=== PATIENT | female | born 1985 | race Caucasian/White ===

== ENCOUNTER 2019-04-04 04:53 | Emergency (ER) | payer OTHER, SELFPAY ==
--- NOTE | 2019-04-04 04:55 | ED_ITS ---
Entered by Miriam Sanchez, acting as scribe for Abby Bryant Documented by User: Abby Bryant 04/04/19 05:54 HPI - Female Genitourinary General: Chief complaint: Vaginal Bleeding Stated complaint: heavy vaginal bleeding Time Seen by Provider: 04/04/19 04:57 Source: patient and family Mode of arrival: ambulatory History of Present Illness: HPI Narrative: 33 y/of female presents to the ED with complaint of heavy vaginal bleeding. Pt states she has had bright red blood since yesterday evening. Around 0300 she had increased bleeding/passing clots. Pt states she recently had a miscarriage so she is not sure if it is time for her next period. She was advised by Dr. Huitron to come into the ER if her bleeding worsened. MD elicited complaint: vaginal bleeding Pertinent past history: prior miscarriages Onset (ago): hour(s) Location of symptoms: vaginal Severity: moderate Consistency: progressively worsening Vaginal bleeding: bright red and clots Associated symptoms: Reports vaginal bleeding; Deny headache(s), nausea or syncope Patient : No Possible : other (recent miscarriage) Review of Systems General: Reports: other (negative unless marked) Const: Denies: fever, chills, body aches, fatigue, malaise or diaphoresis Eyes: Denies: change in vision or blurry vision ENMT: Denies: throat pain, painful swallowing, hoarseness, ear pain, ear discharge, Change in hearing or nasal discharge Card: Denies: chest pain, palpitations, irregular heart rhythm, syncope, pre- syncope, shortness of breath on exertion or shortness of breath when lying down Resp: Denies: shortness of breath, productive cough, non-productive cough, wheezing, coughing up blood or chest congestion GI: Denies: nausea, vomiting, vomiting blood, coffee grounds in vomit, diarrhea, constipation, cramping, blood in stool or black tarry stool : Denies: flank pain, painful urination, urinary frequency, urinary urgency, decreased urine ouput, urinary incontinence or blood in urine Musc: Denies: neck pain, back pain, extremity pain, extremity swelling, joint pain, joint swelling, joint warmth or joint stiffness Skin/Breast: Denies: rash, skin tenderness or yellow skin Neuro: Denies: headache, numbness in extremities, weakness in extremities, changes in sensation, lack of coordination, difficulty walking, dizziness, vertigo or confusion Endo: Denies: excessive thirst, tired all the time, cold intolerance, excessive sweating, flushing or hot flashes Tito/Lymph: Denies: easy bruising, easy bleeding, petechiae or enlarged lymph nodes All/Imm: Denies: hives, throat swelling, tongue swelling, facial swelling or acute wheezing PFSH ED PFSH: Social History Smoking and tobacco status: never smoked Physical Exam Const: COMMON NORMALS: no apparent distress, oriented x3, no limitations, healthy appearing and well nourished EXAM LIMITATIONS: no altered mental status GENERAL APPEARANCE: cooperative, well kempt and well developed ORIENTATION/CONSCIOUSNESS: Yes awake HENMT: COMMON NORMALS: normocephalic, head/scalp atraumatic, hearing grossly normal bilaterally, external ears normal, EAC's normal, external nose normal and moist oral mucous membranes HEAD & SCALP: normal to inspection, normocephalic and atraumatic FACE & SINUS: normal facial exam and face symmetric NOSE: external nose normal and nares normal EXTERNAL EAR: Yes external ears normal EXTERNAL AUDITORY CANAL: EAC's normal MOUTH: oral and palatal mucosa normal and tongue normal Eye: COMMON NORMALS: PERRL, EOMs intact bilaterally, conjunctivae normal and no scleral icterus GENERAL EYE: normal appearance of both eyes and normal light reflex CONJUNCTIVA: Yes conjunctivae normal SCLERA: sclerae normal CORNEA: Yes corneas normal PUPIL: Yes PERRL DIRECT OPHTHALMOSCOPY: Yes normal light reflex Neck/C-Spine: COMMON NORMALS: full ROM, no lymphadenopathy, supple, no meningeal signs and no JVD GENERAL: Yes normal visual inspection and Yes trachea midline CERVICAL SPINE: Yes cervical ROM normal Chest: COMMONS NORMALS: inspection of chest normal and palpation of chest normal Resp: COMMON NORMALS: normal respiratory effort, no retractions, no use of accessory muscles and clear to auscultation bilaterally EFFORT & INSPECTION: Yes able to speak in complete sentences AUSCULTATION: clear to auscultation bilaterally Cardio: COMMON NORMALS: no JVD, regular rate, regular rhythm, S1 normal heart sound, S2 normal heart sound, no gallops, no clicks, no murmurs and no rub JUGULAR VENOUS DISTENTION: no JVD RATE: regular rate RHYTHM: regular rhythm HEART SOUNDS: S1 normal and S2 normal GI: COMMON NORMALS: soft to palpation, non-tender, no hepatosplenomegaly and no masses INSPECTION: Yes normal to inspection PALPATION: Yes soft and Yes no hepatosplenomegaly : COMMON NORMALS: Yes bimanual exam normal EXTERNAL FEMALE EXAM: Yes normal appearance of the urethra SPECULUM EXAM - VAGINA: Yes vaginal bleeding and Yes tissue present in vagina SPECULUM EXAM - CERVIX: Yes cervical os benjamin sed, Yes tissue present in the cervical os and Yes cervical bleeding BIMANUAL EXAM - VAGINA & UTERUS: Yes normal bimanual exam OB/EXTERNAL & SPECULUM: tissue present in vagina and vaginal bleeding Extremity: COMMON NORMALS: normal to inspection, full ROM, normal capillary refill, no joint enlargement, no clubbing, cyanosis or edema and no calf tenderness Neuro: COMMON NORMALS: oriented x3, CN's II-XII intact bilaterally, moves all extremities, no focal motor deficits and no sensory deficits noted MENINGEAL SIGNS: Yes no meningeal signs Psych: COMMON NORMALS: mental status grossly normal, thought process normal, cooperative, affect normal, speech normal and activity/motor behavior normal APPEARANCE: Yes well kempt SPEECH: Yes normal speech THOUGHT PROCESS: normal thought process Skin: COMMON NORMALS: no rashes or lesions noted, skin turgor normal, no jaundice, no petechiae and no mottling GENERAL SKIN EXAM: no rashes or lesions noted and turgor normal Course Vital Signs: Vital signs: Vital Signs Temperature 97.7 F 04/04/19 04:57 Pulse Rate 97 04/04/19 06:22 Respiratory Rate 18 04/04/19 06:22 Blood Pressure 125/78 04/04/19 06:22 Pulse Oximetry 98 04/04/19 06:22 [facility] - Female Lab Data: Labs: Lab Results 04/04/19 04/04/19 04/04/19 Range/Units 05:35 05:46 05:46 WBC 7.1 (4.0-10.0) 10^3/ uL RBC 4.21 (4.1-5.3) 10^6/u L Hgb 11.6 (11.5-15.3) g/dL Hct 36.2 L (37.0-47.0) % MCV 86.0 (81-99) fL MCH 27.6 L (28.0-34.0) pg MCHC 32.0 (30.0-36.0) g/dL RDW 13.2 (12.1-15.1) % Plt Count 260 (130-400) 10^3/c mm MPV 9.6 (7.4-10.4) fL Neut % (Auto) 68.7 % Lymph % (Auto) 22.1 % [place] % (Auto) 6.1 % Eos % (Auto) 2.4 % Baso % (Auto) 0.4 % Neut # (Auto) 4.9 (1.8-7.7) 10^3/u L Lymph # (Auto) 1.6 (0.8-4.8) 10^3/u L [place] # (Auto) 0.4 (0.2-0.9) 10^3/u L Eos # (Auto) 0.2 (0.0-0.8) 10^3/u L Baso # (Auto) 0.0 (0.0-0.1) 10^3/u L Nucleated RBC % (a uto) 0 % Nucleated RBCs # 0.0 /100WBC Sodium 138 (136-145) mmol/L Potassium 3.9 (3.5-5.1) mmol/L Chloride 105 (98-107) mmol/L Carbon Dioxide 22 (22-29) mmol/L Anion Gap 14.9 (5-19) BUN 7 (6-20) mg/dL Creatinine 0.7 (0.5-0.9) mg/dL GFR Calculation 97.6 (90-130) mL/min Glucose 97 (65-115) mg/dL Calcium 9.9 (8.5-10.5) mg/dL Magnesium 2.2 (1.7-2.3) mg/dL Total Bilirubin 0.3 (0.15-1.2) mg/dL AST 14 (0-32) U/L ALT 13 (0-33) U/L Alkaline Phosphata se 62 (35-105) IU/L Total Protein 7.5 (6.6-8.7) g/dL Albumin 4.3 (3.5-5.2) g/dL Globulin 3.2 (1.3-4.6) g/dL Ser , [place] i-Qnt 4266.00 mIU/mL Urine Color Yellow (Yellow) Urine Appearance Clear (CLEAR) Urine pH 6.5 (5-7) Ur Specific Gravit y 1.010 (1.005-1.030) Urine Protein Neg (Negative) Urine Glucose (UA) Norm (Normal) Urine Ketones Negative (Negative) Urine Occult Blood 2+ H (Negative) Urine Nitrate Negative (Negative) Urine Bilirubin Neg (NEGATIVE) Urine Urobilinogen Norm (Negative) mg/dL Ur Leukocyte Debbie ase Negative (Negative) Urine RBC 0-4 H (0-2) /hpf Urine WBC None (0-5) /hpf Ur Squamous Epith Cells 0-4 H (0-5) Urine Bacteria None (NONE) Blood Type 04/04/19 Range/Units 05:46 WBC (4.0-10.0) 10^3/ uL RBC (4.1-5.3) 10^6/u L Hgb (11.5-15.3) g/dL Hct (37.0-47.0) % MCV (81-99) fL MCH (28.0-34.0) pg MCHC (30.0-36.0) g/dL RDW (12.1-15.1) % Plt Count (130-400) 10^3/c mm MPV (7.4-10.4) fL Neut % (Auto) % Lymph % (Auto) % [place] % (Auto) % Eos % (Auto) % Baso % (Auto) % Neut # (Auto) (1.8-7.7) 10^3/u L Lymph # (Auto) (0.8-4.8) 10^3/u L [place] # (Auto) (0.2-0.9) 10^3/u L Eos # (Auto) (0.0-0.8) 10^3/u L Baso # (Auto) (0.0-0.1) 10^3/u L Nucleated RBC % (a uto) % Nucleated RBCs # /100WBC Sodium (136-145) mmol/L Potassium (3.5-5.1) mmol/L Chloride (98-107) mmol/L Carbon Dioxide (22-29) mmol/L Anion Gap (5-19) BUN (6-20) mg/dL Creatinine (0.5-0.9) mg/dL GFR Calculation (90-130) mL/min Glucose (65-115) mg/dL Calcium (8.5-10.5) mg/dL Magnesium (1.7-2.3) mg/dL Total Bilirubin (0.15-1.2) mg/dL AST (0-32) U/L ALT (0-33) U/L Alkaline Phosphata se (35-105) IU/L Total Protein (6.6-8.7) g/dL Albumin (3.5-5.2) g/dL Globulin (1.3-4.6) g/dL Ser , [place] i-Qnt mIU/mL Urine Color (Yellow) Urine Appearance (CLEAR) Urine pH (5-7) Ur Specific Gravit y (1.005-1.030) Urine Protein (Negative) Urine Glucose (UA) (Normal) Urine Ketones (Negative) Urine Occult Blood (Negative) Urine Nitrate (Negative) Urine Bilirubin (NEGATIVE) Urine Urobilinogen (Negative) mg/dL Ur Leukocyte Debbie ase (Negative) Urine RBC (0-2) /hpf Urine WBC (0-5) /hpf Ur Squamous Epith Cells (0-5) Urine Bacteria (NONE) Blood Type O Positive Discharge Plan Discharge Patient Disposition: Home, Self-Care Clinical Impression: Spontaneous miscarriage Condition: Stable Discharge Orders: Discharge Order (Routine); Ordered 04/04/19 Ordered By: Mauro Amaro Referrals: Henrique Huitron MD [Physician] - Discharge Diet: Usual diet Discharge Activity: Resume usual activity Activity Restrictions/Additional Instructions: Follow-up with Dr. Huitron within the next 3 to 5 days for repeat beta-hCG. R eturn if you have increased vaginal bleeding Sign Out Sign Out Data: Patient Sign Out occurred on 04/04/19 at 06:48. Patient's care was discussed, and care was transferred from to Mauro Amaro DO. Coding Level of Care Code ED Back Tender Insulation Board for Chg Fwd Exam Comprehensive Documented by User: Mauro Amaro DO 04/04/19 07:21 HPI - Female Genitourinary General: Chief complaint: Vaginal Bleeding Stated complaint: heavy vaginal bleeding Time Seen by Provider: 04/04/19 04:57 PFSH ED PFSH: Social History Smoking and tobacco status: never smoked Course ED course: 33-year-old female was spontaneous AB picked up at change of shift. Beta-hCG approximately 4600. Patient is Rh+. Ultrasound shows indistinct material in the uterine vault. From what Dr. Smalls and described she probably removed products of conception from cervical loss of bleeding is slowed significantly since then. Discussed with the findings with the patient. Recommend that she follow-up with Dr. Huitron in the next 3 to 5 days she is to return if she begins bleeding more than a pad an hour. Discussed that if she is not does not need RhoGam I would anticipate she will continue to have some level of bleeding although it should begin tapering off. Also informed her she will need a follow-up beta-hCG through Dr. Huitron's office and to contact his office within the next day or 2 to schedule that. Vital Signs: Vital signs: Vital Signs Temperature 97.7 F 04/04/19 04:57 Pulse Rate 97 04/04/19 06:22 Respiratory Rate 18 04/04/19 06:22 Blood Pressure 125/78 04/04/19 06:22 Pulse Oximetry 98 04/04/19 06:22 MDM - Female Lab Data: Labs: Lab Results 04/04/19 04/04/19 04/04/19 Range/Units 05:35 05:46 05:46 WBC 7.1 (4.0-10.0) 10^3/ uL RBC 4.21 (4.1-5.3) 10^6/u L Hgb 11.6 (11.5-15.3) g/dL Hct 36.2 L (37.0-47.0) % MCV 86.0 (81-99) fL MCH 27.6 L (28.0-34.0) pg MCHC 32.0 (30.0-36.0) g/dL RDW 13.2 (12.1-15.1) % Plt Count 260 (130-400) 10^3/c mm MPV 9.6 (7.4-10.4) fL Neut % (Auto) 68.7 % Lymph % (Auto) 22.1 % [place] % (Auto) 6.1 % Eos % (Auto) 2.4 % Baso % (Auto) 0.4 % Neut # (Auto) 4.9 (1.8-7.7) 10^3/u L Lymph # (Auto) 1.6 (0.8-4.8) 10^3/u L [place] # (Auto) 0.4 (0.2-0.9) 10^3/u L Eos # (Auto) 0.2 (0.0-0.8) 10^3/u L Baso # (Auto) 0.0 (0.0-0.1) 10^3/u L Nucleated RBC % (a uto) 0 % Nucleated RBCs # 0.0 /100WBC Sodium 138 (136-145) mmol/L Potassium 3.9 (3.5-5.1) mmol/L Chloride 105 (98-107) mmol/L Carbon Dioxide 22 (22-29) mmol/L Anion Gap 14.9 (5-19) BUN 7 (6-20) mg/dL Creatinine 0.7 (0.5-0.9) mg/dL GFR Calculation 97.6 (90-130) mL/min Glucose 97 (65-115) mg/dL Calcium 9.9 (8.5-10.5) mg/dL Magnesium 2.2 (1.7-2.3) mg/dL Total Bilirubin 0.3 (0.15-1.2) mg/dL AST 14 (0-32) U/L ALT 13 (0-33) U/L Alkaline Phosphata se 62 (35-105) IU/L Total Protein 7.5 (6.6-8.7) g/dL Albumin 4.3 (3.5-5.2) g/dL Globulin 3.2 (1.3-4.6) g/dL Ser , [place] i-Qnt 4266.00 mIU/mL Urine Color Yellow (Yellow) Urine Appearance Clear (CLEAR) Urine pH 6.5 (5-7) Ur Specific Gravit y 1.010 (1.005-1.030) Urine Protein Neg (Negative) Urine Glucose (UA) Norm (Normal) Urine Ketones Negative (Negative) Urine Occult Blood 2+ H (Negative) Urine Nitrate Negative (Negative) Urine Bilirubin Neg (NEGATIVE) Urine Urobilinogen Norm (Negative) mg/dL Ur Leukocyte Debbie ase Negative (Negative) Urine RBC 0-4 H (0-2) /hpf Urine WBC None (0-5) /hpf Ur Squamous Epith Cells 0-4 H (0-5) Urine Bacteria None (NONE) Blood Type 04/04/19 Range/Units 05:46 WBC (4.0-10.0) 10^3/ uL RBC (4.1-5.3) 10^6/u L Hgb (11.5-15.3) g/dL Hct (37.0-47.0) % MCV (81-99) fL MCH (28.0-34.0) pg MCHC (30.0-36.0) g/dL RDW (12.1-15.1) % Plt Count (130-400) 10^3/c mm MPV (7.4-10.4) fL Neut % (Auto) % Lymph % (Auto) % [place] % (Auto) % Eos % (Auto) % Baso % (Auto) % Neut # (Auto) (1.8-7.7) 10^3/u L Lymph # (Auto) (0.8-4.8) 10^3/u L [place] # (Auto) (0.2-0.9) 10^3/u L Eos # (Auto) (0.0-0.8) 10^3/u L Baso # (Auto) (0.0-0.1) 10^3/u L Nucleated RBC % (a uto) % Nucleated RBCs # /100WBC Sodium (136-145) mmol/L Potassium (3.5-5.1) mmol/L Chloride (98-107) mmol/L Carbon Dioxide (22-29) mmol/L Anion Gap (5-19) BUN (6-20) mg/dL Creatinine (0.5-0.9) mg/dL GFR Calculation (90-130) mL/min Glucose (65-115) mg/dL Calcium (8.5-10.5) mg/dL Magnesium (1.7-2.3) mg/dL Total Bilirubin (0.15-1.2) mg/dL AST (0-32) U/L ALT (0-33) U/L Alkaline Phosphata se (35-105) IU/L Total Protein (6.6-8.7) g/dL Albumin (3.5-5.2) g/dL Globulin (1.3-4.6) g/dL Ser , [place] i-Qnt mIU/mL Urine Color (Yellow) Urine Appearance (CLEAR) Urine pH (5-7) Ur Specific Gravit y (1.005-1.030) Urine Protein (Negative) Urine Glucose (UA) (Normal) Urine Ketones (Negative) Urine Occult Blood (Negative) Urine Nitrate (Negative) Urine Bilirubin (NEGATIVE) Urine Urobilinogen (Negative) mg/dL Ur Leukocyte Debbie ase (Negative) Urine RBC (0-2) /hpf Urine WBC (0-5) /hpf Ur Squamous Epith Cells (0-5) Urine Bacteria (NONE) Blood Type O Positive Discharge Plan Discharge Patient Disposition: Home, Self-Care Clinical Impression: Spontaneous miscarriage Condition: Stable Discharge Orders: Discharge Order (Routine); Ordered 04/04/19 Ordered By: Mauro Amaro Referrals: Henrique Huitron MD [Physician] - Discharge Diet: Usual diet Discharge Activity: Resume usual activity Activity Restrictions/Additional Instructions: Follow-up with Dr. Huitron within the next 3 to 5 days for repeat beta-hCG. Return if you have increased vaginal bleeding Sign Out Sign Out Data: Patient Sign Out occurred on 04/04/19 at 06:48. Patient's care was discussed, and care was transferred from to Mauro Amaro DO. Coding Level of Care Code ED Back Tender Insulation Board for Chg Fwd Exam Comprehensive The documentation recorded by the Daniel finn Ashley, accurately reflects the service I personally performed and the decisions made by Manny edwards Eli N Apr 04, 2019 04:53
[2019-04-04 04:57] VITALS: BP 133/106; PULSE 94; RESP 18; TEMP 36.5; O2SAT 100; BMI 31.8
--- NOTE | 2019-04-04 05:10 | PC.NURSE ---
patient states that she has recently seen her OBGYN for a possible miscarriage. patient states that she was told she was having a miscarriage on the 2nd of this month. patient states that she started having bleeding today with clots
--- NOTE | 2019-04-04 05:14 | US_ITS ---
WS: [id number] PELVIC ULTRASOUND REASON FOR VISIT: Pain TECHNIQUE: Grayscale and Doppler transabdominal and transvaginal pelvic ultrasound. FINDINGS: The endometrium appears to be markedly thickened suggesting either retained products of conception ar e blood clots. Uterus measures 9.83 cm x 6.8 cm x 5.8 cm, right ovary measures 3.2 cm x 1.6 cm x 2.1 cm, and left ov sofia measures 3.8 cm x 1.5 cm x 1.7 cm. Considerable fluid in the cul-de-sac areas noted. US/US pelvic with transvaginal IMPRESSION: Suspect products of conception retention. Fluid in the cul-de-sac. The uterus is mildly enlarged.
[2019-04-04] MEDS: sodium chloride 0.9% 1,000 ML 100 ML IV (05:43)
[2019-04-04 05:55] LABS: Basophils % 0.4 %; Eosinophils # 0.2 10^3/uL (0.0-0.8); Eosinophils % 2.4 %; Hematocrit 36.2 % (37.0-47.0); Hemoglobin 11.6 g/dL (11.5-15.3); Lymphocytes # 1.6 10^3/uL (0.8-4.8); Lymphocytes % 22.1 %; Mean Corpuscular Hemoglobin 27.6 pg (28.0-34.0); Mean Platelet Volume 9.6 fL (7.4-10.4); Monocytes # 0.4 10^3/uL (0.2-0.9); Monocytes % 6.1 %; Neutrophils # 4.9 10^3/uL (1.8-7.7); Neutrophils % 68.7 %; Nucleated Red Blood Cells % 0 %; Platelet Count 260 10^3/cmm (130-400); Red Blood Count 4.21 10^6/uL (4.1-5.3); Red Cell Distribution Width 13.2 % (12.1-15.1); White Blood Count 7.1 10^3/uL (4.0-10.0)
[2019-04-04 05:59] LABS: Urine Appearance Clear (CLEAR); Urine Color Yellow (Yellow)
[2019-04-04 06:00] LABS: Bilirubin Urine Neg (NEGATIVE); Blood Urine 2+ (Negative); Glucose Urine UA Norm (Normal); Ketones Urine Negative (Negative); Leukocyte Esterase Urine Negative (Negative); Nitrate Urine Negative (Negative); Protein Urine Neg (Negative); Urobilinogen Urine Norm (Negative); pH Urine 6.5 (5-7)
[2019-04-04 06:12] LABS: Add Urine Culture? No; RBC Urine 0-4 /hpf (0-2); Squamous Epithelial Cell Urine 0-4 (0-5)
[2019-04-04 06:22] VITALS: BP 125/78; PULSE 97; RESP 18; O2SAT 98
[2019-04-04 06:23] LABS: Alanine Aminotransferase 13 U/L (0-33); Albumin Level 4.3 g/dL (3.5-5.2); Alkaline Phosphatase 62 IU/L (35-105); Anion Gap 14.9 (5-19); Aspartate Amino Transferase 14 U/L (0-32); Blood Urea Nitrogen 7 mg/dL (6-20); Calcium 9.9 mg/dL (8.5-10.5); Carbon Dioxide 22 mmol/L (22-29); Chloride 105 mmol/L (98-107); Globulin 3.2 g/dL (1.3-4.6); Glomerular Filtration Rate 97.6 mL/min (90-130); Glucose 97 mg/dL (65-115); Magnesium 2.2 mg/dL (1.7-2.3); Potassium 3.9 mmol/L (3.5-5.1); Sodium 138 mmol/L (136-145); Total Bilirubin 0.3 mg/dL (0.15-1.2); Total Protein 7.5 g/dL (6.6-8.7)
[2019-04-04 07:17] VITALS: BP 114/71; PULSE 86; O2SAT 98
--- NOTE | 2019-04-04 07:40 | PC.NURSE ---
Previous nurse did not complete assessment. This nurse saw this incomplete task after pt was discharged. Pt not assessed by fiction writer.
== END 2019-04-04 07:17 | disposition home or self-care (01) ==
PROVIDERS: Emergency Medicine; Emergency Provider Family Medicine; Family Provider Nurse Practitioner Family; PCP Nurse Practitioner Family
DX: O03.9 Complete or unspecified spontaneous abortion without complication (principal)
CPT/HCPCS: 76830; 76856; 80053; 81001; 83735; 84702; 85025; 86900; 87210; 87491; 87591; 96360; 96361; 99283; A9270; E0352; J7030

== ENCOUNTER 2019-08-29 14:34 | Outpatient (CLI) | payer OTHER, BC, SELFPAY ==
--- NOTE | 2019-08-29 14:30 | XR_ITS ---
WS: [id number] KUB, 08/29/2019 Clinical Data: Stones Comparison: KUB, 08/07/2018. Findings: No abnormal intraabdominal masses or calcifications are seen. There is no dilatated small bowel or ev idence of obstruction. There is a moderate amount of fecal material in the ascending and descending colon. XR/XR KUB [id number] Impression: Negative KUB.
== END 2019-08-29 14:35 | disposition home or self-care (01) ==
LOC: RAD 14:40
PROVIDERS: Family Provider Nurse Practitioner Family; PCP Nurse Practitioner Family; Visit Provider Urology
DX: N20.0 Calculus of kidney (principal)
CPT/HCPCS: 74018; 81001

== ENCOUNTER → 2019-12-31 14:14 | Outpatient (BNVA) | payer BC, SELFPAY | PROVIDERS: Family Provider Nurse Practitioner Family; PCP Nurse Practitioner Family; Visit Provider Nurse Practitioner Family | DX: Z79.899 Other long term (current) drug therapy (principal) | CPT/HCPCS: 80053 ==

== ENCOUNTER 2020-05-17 17:34 | Emergency (ER) | payer BC, SELFPAY ==
[2020-05-17 17:35] VITALS: BP 130/89; PULSE 89; RESP 18; TEMP 36.4; O2SAT 100; BMI 31.8
--- NOTE | 2020-05-17 17:49 | XRR_ITS ---
PROCEDURE INFORMATION: Exam: XR Right Ankle Exam date and time: 05/17/2020 5:51 PM Age: 35 years old Clinical indication: Injury or trauma; Fall; Swelling (edema); Ankle; Right; Patient HX: Twisting injury with swelling. C/O pain. ; Additional info: Injury with ankle pain TECHNIQUE: Imaging protocol: XR Right ankle. Views: 3 or more views. COMPARISON: No relevant prior studies available. FINDINGS: Bones/joints: Normal. Soft tissues: Normal. XR/XR ankle RT min 3V* [id number] IMPRESSION: Negative for fracture or dislocation.
--- NOTE | 2020-05-17 18:02 | ED_ITS ---
HPI - Extremity Problem General: Chief complaint: Extremity Injury, Lower Stated complaint: R LLE INJURY Time Seen by Provider: 05/17/20 17:49 History of Present Illness: HPI Narrative: Patient is a 35-year-old female comes to the ED with right ankle injury. Patient says she was walking in her yard a couple hours before arriving here in the ED and she stepped in a hole with her right leg. She describes her right ankle twisted and she felt a pop. She is now having pain in her right ankle when ambulating. She rates her pain currently a 6 out of 10. She says she has not taken any bvtc-plr-lwjcige pain meds before coming to the ED. Denies any head trauma or loss of consciousness. Associated symptoms: Deny chest pain, fever(s) or rash Review of Systems Const: Denies: fever(s), chills or fatigue Eyes: Denies: change in vision or eye discomfort ENMT: Denies: throat pain, odynophagia, nasal discharge or nasal congestion Card: Denies: chest pain, palpitations, edema, swelling of feet/ankles, dyspnea on exertion or orthopnea Resp: Denies: dyspnea, productive cough or non-productive cough GI: Denies: abdominal pain, nausea, vomiting, diarrhea, constipation or hematochezia : Denies: flank pain, dysuria or hematuria Musc: Reports: extremity pain (right ankle); Denies: neck pain, back pain or extremity swelling Skin/Breast: Denies: rash or new lesions Neuro: Denies: headache(s), numbness in extremities or weakness in extremities [facility] ED PFSH: Medical History S/P extracorporeal shock wave therapy Urolithiasis Surgical History H/O oral surgery wisdom teeth extraction Social History Smoking and tobacco status: never smoked Alcohol intake: never Marital status: Single Current occupational status: employed History of recent travel: No Physical Exam Const: COMMON NORMALS: no acute distress, patient oriented x3 and alert GENERAL APPEARANCE: cooperative and comfortable HENMT: COMMON NORMALS: normocephalic HEAD & SCALP: normocephalic MOUTH: Normal oral and palatal mucosa present THROAT: posterior oropharynx normal and uvula midline Neck/C-Spine: COMMON NORMALS: supple GENERAL: Yes normal visual inspection Resp: COMMON NORMALS: normal respiratory effort, No retractions, No use of accessory muscles and clear to auscultation bilaterally AUSCULTATION: clear to auscultation bilaterally Cardio: COMMON NORMALS: regular rate, regular rhythm, S1 normal heart sound present, S2 normal heart sound present, No gallops present (Cardio), No clicks present (Cardio), No murmurs present (Cardio) and Peripheral pulses 2+ throughout RATE: regular rate RHYTHM: regular rhythm HEART SOUNDS: S1 normal heart sound present and S2 normal heart sound present PERIPHERAL PULSES: Peripheral pulses 2+ throughout GI: COMMON NORMALS: Normal to inspection, nondistended, normoactive bowel sounds present, Soft to palpation, non-tender and no masses PALPATION: Yes Soft to palpation : COMMON NORMALS: Yes no CVA tenderness BLADDER/KIDNEY EXAM: Yes no CVA tenderness Back/Pelvis: COMMON NORMALS: no CVA tenderness Extremity: GENERAL: Yes normal exam except as noted RIGHT LOWER EXTREMITY: Yes foot & digits Right ankle: Yes inspection (No ecchymosis, deformity or edema seen.), Yes palpation (Tenderness to palpation over the anterior aspect of ankle.), Yes ROM (Limited due to pain.) and Yes neurovascular exam (Intact, pedal pulse 2+.) Neuro: COMMON NORMALS: patient oriented x3 and moves all extremities SENSORIUM/ORIENTATION: Yes alert Skin: GENERAL SKIN EXAM: dry skin Course Vital Signs: Vital signs: Vital Signs Temperature 97.5 F L 05/17/20 17:35 Pulse Rate 89 05/17/20 17:35 Respiratory Rate 18 05/17/20 17:35 Blood Pressure 130/89 05/17/20 17:35 Pulse Oximetry 100 05/17/20 17:35 MDM - Extremity (Nontraumatic) MDM Narrative: Medical decision making narrative: Patient is a 35-year-old female comes to the ED with right ankle injury. Injury occurred just prior to arrival and patient says she stepped in a hole and rolled ankle. Exam findings showed no visible deformity, ecchymosis or edema around right ankle. She has tenderness upon palpation of the anterior aspect of ankle. Neurovascular intact distally. X-ray right ankle shows no acute fractures or findings. Patient given Toradol while here in the ED to help with pain. Patient was diagnosed with an ankle sprain and discharged home with crutches. She was told to rest ice and elevate right leg and to take [id number] Tylenol or ibuprofen for pain. Return to ED precautions given. Follow-up with PCP in 7 to 10 days reevaluation. Patient understood and agree with plan. Imaging Data^: Xray Ortho: Attestation: I personally reviewed and interpreted this imaging study as follows: Radiologist's impression: [address] [place] [address] XRay Report Signed Patient: Mirella Small Unit #: [id number] : 1985 Age/Sex: 35 / F ADM Date: 05/17/20 Loc: ER Room/Bed: Attending Dr: Ordering Provider/Ordering MD: Ted Bravo Date of Service: 05/17/20 Procedure(s): XR ankle RT min 3V* [id number] Accession Number(s): [id number] Report Number: [id number] PROCEDURE INFORMATION: Exam: XR Right Ankle Exam date and time: 05/17/2020 5:51 PM Age: 35 years old Clinical indication: Injury or trauma; Fall; Swelling (edema); Ankle; Right; Patient HX: Twisting injury with swelling. C/O pain. ; Additional info: Injury with ankle pain TECHNIQUE: Imaging protocol: XR Right ankle. Views: 3 or more views. COMPARISON: No relevant prior studies available. FINDINGS: Bones/joints: Normal. Soft tissues: Normal. XR/XR ankle RT min 3V* [id number] IMPRESSION: Negative for fracture or dislocation. Dictated By: Wilbert Cano MD Signed By: Wilbert Cano MD Signed Date/Time: 05/17/201833 DD/ 32 Discharge Plan Discharge Patient Disposition: Home Clinical Impression: Ankle sprain and strain Condition: Stable Prescriptions: No Action metronidazole [Flagyl] 500 mg tablet 500 mg PO BID 7 Days Qty: 14 RF: 2 Discharge Orders: Discharge ED (Routine); Ordered 05/17/20 Ordered By: Ted Bravo Referrals: Gualberto,Hetal, [facility] [Primary Care Provider] - Discharge Diet: Regular Discharge Activity: Increase activity as tolerated and Use walker/crutches as instructed Patient Instructions: Ankle Sprain (ED), Ankle Exercises (GEN) Activity Restrictions/Additional Instructions: Follow-up with medical provider as directed in 7 to 10 days. Take [id number]-hfpwwky ibuprofen up to 800 mg dose every 8 hours. Rest ice and elev ate right leg. Use crutches for the next 2 to 3 days and limit weightbearing. Then advance weightbearing as tolerated. Return to the ER or your medical provider if condition worsens. Please read and understand discharge instructions. If any questions, please ask. Stand Alone Forms: Work/School Release Coding Level of Care Code ED Manager [employer] for [employer] Fwd Exam Comprehensive
[2020-05-17] MEDS: ketorolac 60 mg/2 mL INJ IM (19:00)
== END 2020-05-17 19:07 | disposition home or self-care (01) ==
PROVIDERS: Emergency Provider Physician Assistant; PCP Nurse Practitioner Family
DX: S93.401A Sprain of unspecified ligament of right ankle, initial encounter (principal); S96.911A Strain of unspecified muscle and tendon at ankle and foot level, right foot, initial encounter; X50.1XXA Overexertion from prolonged static or awkward postures, initial encounter
CPT/HCPCS: 73610; 96372; 99283; E0114; J1885

== ENCOUNTER → 2021-01-30 11:33 | Outpatient (BNVA) | payer BC, SELFPAY | PROVIDERS: PCP Nurse Practitioner Family; Visit Provider Nurse Practitioner Family | DX: N91.2 Amenorrhea, unspecified (principal) | CPT/HCPCS: 84443; 84702 ==

== ENCOUNTER → 2021-03-06 10:29 | Outpatient (BNVA) | payer BC, SELFPAY | PROVIDERS: PCP Nurse Practitioner Family; Visit Provider Nurse Practitioner Family | DX: Z20.822 Contact with and (suspected) exposure to COVID-19 (principal) | CPT/HCPCS: 87635 ==

== ENCOUNTER → 2021-10-27 08:52 | Outpatient (BNVA) | payer SELFPAY | PROVIDERS: PCP Nurse Practitioner Family; Visit Provider Dermatology | DX: Z01.89 Encounter for other specified special examinations (principal) ==

== ENCOUNTER → 2023-05-16 09:33 | Outpatient (BNVA) | payer BC, SELFPAY | PROVIDERS: PCP Nurse Practitioner Family; Visit Provider Nurse Practitioner Family | DX: R31.9 Hematuria, unspecified (principal); Z87.442 Personal history of urinary calculi | CPT/HCPCS: 74018 ==